=== PATIENT | male | born 1985 ===

== ENCOUNTER 2018-04-18 19:17 | Emergency (ER) | payer OTHER ==
[2018-04-18 19:24] VITALS: BP 124/85; PULSE 73; TEMP 97.5; BMI 29.1
--- NOTE | 2018-04-18 19:43 | PDOC ---
History of Present Illness - General History Source: Patient Exam Limitations: No Limitations - History of Present Illness Initial Comments: 04/18/18 21:27 The patient is a 32 year old male with no reported past medical history presents to the emergency department with vertigo. The patient reports around 4: 00 PM today the patient was watching TV, when he stood up he left lightheaded. The patient reports initially he thought it was a dizzy spell from standing up too fast but after a while the sensation remained. The patient reports the sensation is aggravated by movement or trying to focus, with relief when lying down. The patient reports associated symptom of nausea and vomiting, with an episode of nonbilious nonbloody emesis an hour and half after the vertigo manifested. The patient reports feeling nauseous upon arrival to the ED, which is aggravated by movement or standing up, relief when lying down. The patient reports his last meal was 10/20 minutes prior the vertigo manifestation. Denies any prior similar incident. Denies any recent head trauma. Denies fever, chills , cough or headache. Denies recent flu or illness. Denies any recent travel. Allergies: Seasonal allergies Social history: None reported. Surgical history; None reported. PCP: Zeferino Tejada MD <Chitra Owens - Last Filed: 04/18/18 21:27> <Gertrude Adrian - Last Filed: 04/19/18 02:24> - General Chief Complaint: Lightheaded Stated Complaint: DIZZINESS Time Seen by Provider: 04/18/18 19:27 Past History <Chitra Owens - Last Filed: 04/18/18 21:27> - Past Medical History COPD: No Other medical history: SEASONAL ALLERGIES - Suicide/Smoking/Psychosocial Hx Smoking History: Never smoked <Gertrude Adrian - Last Filed: 04/19/18 02:24> - Past Medical History Allergies/Adverse Reactions: Allergies Allergy/AdvReac Type Severity Reaction Status Date / Time No Known Allergies Allergy Unverified 04/18/18 19:22 Home Medications: Ambulatory Orders Meclizine HCl [Antivert -] 25 mg PO TID PRN #20 tablet 04/18/18 Review of Systems - Review of Systems Able to Perform ROS?: Yes Comments:: 04/18/18 21:33 CONSTITUTIONAL: Absent: fever, no chills, no fatigue EYES: Absent: visual changes ENT: Absent: ear pain, no sore throat CARDIOVASCULAR: Absent: chest pain, no palpitations RESPIRATORY: Absent: cough, no SOB GI: (+) Nausea with an episode of vomiting. Absent: abdominal pain, no constipation, no diarrhea GENITOURINARY: Absent: dysuria, no frequency, no hematuria MUSKULOSKELETAL: Absent: back pain, no arthralgia, no myalgia SKIN: Absent: rash NEURO: (+) Vertigo. Absent: headache <Chitra Owens - Last Filed: 04/18/18 21:27> *Physical Exam - Vital Signs Last Vital Signs Temp Pulse Resp BP Pulse Ox 97.5 F L 73 16 124/85 98 04/18/18 19:23 04/18/18 19:23 04/18/18 19:23 04/18/18 19:23 04/18/18 19:23 - Physical Exam Comments: 04/18/18 21:33 GENERAL: The patient is awake, alert, and fully oriented, in no acute distress. HEAD: Normal with no signs of trauma. EYES: (+) Extra beat of nystagmus of the left lateral gaze. Pupils equal, round and reactive to light, extraocular movements intact, sclera anicteric, conjunctiva clear with no pallor. ENT: Ears normal, nares patent, oropharynx clear without exudates. (+) Dry mucous membranes. NECK: Normal range of motion, supple without lymphadenopathy, JVD, or masses. LUNGS: Breath sounds equal, clear to auscultation bilaterally. No wheeze/ crackles. HEART: Regular rate and rhythm, normal S1 and S2 without murmur or rub. ABDOMEN: Soft/nontender/nondistended. BS wnl. No guarding or rebound. No palpable masses. No hepatosplenomegaly. EXTREMITIES: Normal range of motion, no edema. No clubbing or cyanosis. No cords, erythema, or tenderness. NEUROLOGICAL: Cranial nerves II through XII grossly intact. Normal speech, normal gait. PSYCH: Normal mood, normal affect. SKIN: Warm, Dry, normal turgor, no rashes or lesions noted. <Chitra Owens - Last Filed: 04/18/18 21:27> - Vital Signs Last Vital Signs Temp Pulse Resp BP Pulse Ox 97.5 F L 73 16 124/85 98 04/18/18 19:23 04/18/18 19:23 04/18/18 19:23 04/18/18 19:23 04/18/18 19:23 <Gertrude Adrian - Last Filed: 04/19/18 02:24> ED Treatment Course - LABORATORY CBC & Chemistry Diagram: 04/18/18 20:55 04/18/18 20:55 - ADDITIONAL ORDERS Additional order review: Laboratory Results 04/18/18 20:55 Sodium 136 Potassium 4.3 Chloride 106 Carbon Dioxide 27 Anion Gap 3 L BUN 11 Creatinine 0.9 Creat Clearance w eGFR > 60 Random Glucose 105 Calcium 9.2 Total Bilirubin 0.6 AST 21 ALT 23 Alkaline Phosphatase 52 Total Protein 7.9 Albumin 4.5 04/18/18 20:55 RBC 5.75 H MCV 85.5 MCHC 34.4 RDW 13.4 MPV 8.1 Neutrophils % 86.1 H Lymphocytes % 10.9 Monocytes % 2.4 L Eosinophils % 0.3 Basophils % 0.3 - Medications Given in the ED: ED Medications Discontinued Medications Generic Name Dose Route Start Last Admin Trade Name Freq PRN Reason Stop Dose Admin Meclizine HCl 25 mg 04/18/18 20:11 04/18/18 20:14 Antivert - PO 04/18/18 20:12 25 mg ONCE ONE Administration <Chitra Owens - Last Filed: 04/18/18 21:27> - LABORATORY CBC & Chemistry Diagram: 04/18/18 20:55 04/18/18 20:55 <Gertrude Adrian - Last Filed: 04/19/18 02:24> Medical Decision Making - Medical Decision Making Documentation has been prepared under my direction and personally reviewed by me in its entirety. I attest that this documented accurately reflects all work, treatment, procedures and medical decision making performed by me. As noted above, this 32-year-old man with no previous medical history presents with sudden onset of vertigo earlier today. Patient had subsequent nausea and one episode of vomiting. Patient states that vertigo is triggered by focusing on any object and changes in position. The vertigo was minimized by supine position with eyes closed. No history of head trauma or headache. Exam essentially normal except for mild increase in nystagmus on left lateral gaze. Noncontrast head CT is negative for bleed/mass or other acute intracranial abnormality Chemistry profile and CBC evaluated and 1 L normal saline given as well as 25 mg of meclizine by mouth. Laboratory evaluation is essentially normal. Patient reported marked relief in symptoms after meclizine; no further vertigo was reported and nausea resolved. Patient will be discharged with prescription for meclizine 25 mg 3 times a day as needed for vertigo. He should follow-up with his general doctor in the near future. Meanwhile, he should plan not to work tomorrow and to take 3 doses of meclizine, even if he is not feeling vertigo. After that, he should take as needed. He should return to the emergency room if he has persistent dizziness or nausea/vomiting <Gertrude Adrian - Last Filed: 04/19/18 02:24> *DC/Admit/Observation/Transfer <Chitra Owens - Last Filed: 04/18/18 21:27> <Gertrude Adrian - Last Filed: 04/19/18 02:24> Diagnosis at time of Disposition: Acute labyrinthitis Qualifiers: Laterality: unspecified laterality Qualified Code(s): H83.09 - Labyrinthitis, unspecified ear - Discharge Dispostion Disposition: HOME Condition at time of disposition: Stable - Prescriptions Prescriptions: Meclizine HCl [Antivert -] 25 mg PO TID PRN #20 tablet PRN Reason: Vertigo - Referrals Referrals: Zeferino Tejada MD [Primary Care Provider] - - Patient Instructions Printed Discharge Instructions: DI for Labyrinthitis Additional Instructions: Rest; drink plenty of fluids Meclizine 25 mg 3 times a day for the first 2 days, then as needed for vertigo No work tomorrow Follow-up with your doctor within the next4-5 days Return to ER if you have persistent severe spinning sensation or develop persistent vomiting - Post Discharge Activity Forms/Work/School Notes: Back to Work
[2018-04-18] MEDS ORDERED: MECLIZINE HCL 25 MG TABLET (FP) PO ONE (20:11)
[2018-04-18] MEDS ORDERED: MECLIZINE HCL 25 MG TABLET (FP) ONE ×2 (20:12→22:08)
[2018-04-18] MEDS ORDERED: SODIUM CHLORIDE 1,000 ML IV STA (20:46)
[2018-04-18 21:13] LABS: BASO % 0.3 % (0-2.0); EOS % 0.3 % (0-4.5); HEMATOCRIT 49.2 % (35.4-49); HEMOGLOBIN 16.9 GM/dl (11.7-16.9); LYMPH % 10.9 % (8-40); MCH 29.4 pg (25.7-33.7); MCHC 34.4 g/dl (32.0-35.9); MEAN CELL VOLUME 85.5 fl (80-96); MEAN PLT VOLUME 8.1 fl (7.5-11.1); MONO % 2.4 % (3.8-10.2); NEUT % 86.1 % (42.8-82.8); PLATELET COUNT 249 K/MM3 (134-434); RBC 5.75 M/mm3 (4.00-5.60); RDW 13.4 % (11.9-15.9); WHITE BLOOD COUNT 10.6 K/mm3 (4.0-10.8)
[2018-04-18 21:21] LABS: ALBUMIN 4.5 g/dl (3.5-5.0); ALK PHOS 52 U/L (32-92); ANION GAP 3 (8-16); BILIRUBIN,TOTAL 0.6 mg/dl (0.2-1.0); BLOOD UREA NITROGEN 11 mg/dl (7-18); CALCIUM 9.2 mg/dl (8.4-10.2); CHLORIDE 106 mmol/L (98-107); CO2 27 mmol/L (22-28); CREATININE 0.9 mg/dl (0.6-1.3); GLUCOSE,RANDOM 105 mg/dl (74-106); POTASSIUM 4.3 mmol/L (3.5-5.1); SGOT/AST 21 U/L (10-42); SGPT/ALT 23 U/L (10-40); SODIUM 136 mmol/L (136-145); TOT PROT 7.9 g/dl (6.4-8.3)
== END 2018-04-18 22:16 | disposition home or self-care (01) ==
LOC: FER 19:17
PROC: 3E0337Z Introduction of Electrolytic and Water Balance Substance into Peripheral Vein, Percutaneous Approach (ICD-10-PCS; principal; 2018-04-18)
DX: H83.09 Labyrinthitis, unspecified ear (principal); J30.2 Other seasonal allergic rhinitis
CPT/HCPCS: 36415; 70450-TC; 80053; 85025; 99282-25; J7030

== ENCOUNTER 2022-02-08 11:27 | Emergency (ER) | payer OTHER ==
[2022-02-08 11:44] VITALS: BP 118/86; PULSE 73; TEMP 98.2; BMI 29.2
[2022-02-08 13:03] LABS: ALBUMIN 4.3 g/dl (3.4-5.0); BILIRUBIN,TOTAL 0.9 mg/dl (0.2-1); CALCIUM 9.5 mg/dl (8.5-10); CREATININE 0.8 mg/dl (0.55-1.3); TOT PROT 7.7 g/dl (6.4-8.2)
[2022-02-08 13:56] LABS: BASO % 0.6 % (0-2.0); EOS % 2.9 % (0-4.5); HEMATOCRIT 44.1 % (35.4-49); HEMOGLOBIN 14.8 GM/dL (11.7-16.9); LYMPH % 30.2 % (8-40); MCH 29.1 pg (25.7-33.7); MCHC 33.6 g/dl (32.0-35.9); MEAN CELL VOLUME 86.6 fl (80-96); MEAN PLT VOLUME 8.3 fl (7.5-11.1); MONO % 8.4 % (3.8-10.2); NEUT % 57.9 % (42.8-82.8); PLATELET COUNT 231 10^3/uL (134-434); RDW 13.6 % (11.9-15.9); WHITE BLOOD COUNT 6.1 K/mm3 (4.0-10.0)
[2022-02-08 14:34] LABS: ERYTHROCYTE SEDIMENTATION RATE 7 mm/hr (0-10)
[2022-02-08] MEDS ORDERED: LIDOCAINE HCL 2% (50ML VIAL) INF ONE (15:50)
[2022-02-08] MEDS ORDERED: LIDOCAINE HCL 2% (20ML MULTI-DOSE VIAL) ONE (15:52)
== END 2022-02-08 16:42 | disposition home or self-care (01) ==
LOC: FER 11:27
DX: M70.52 Other bursitis of knee, left knee (principal)
CPT/HCPCS: 36415; 73562-TC-LT-FY; 80053; 85025; 85651; 86140; 99284-25